=== PATIENT | female | born 1965 | race Caucasian/White ===

== ENCOUNTER 2017-05-14 12:34 | Emergency (ER) | payer MEDICAID ==
[~2017-05-14] VITALS: Ht 170.2 cm; Wt 75.0 kg
[2017-05-14 12:37] VITALS: Ht 170.2 cm; Wt 75.0 kg
[2017-05-14] MEDS ORDERED: ACETAMINOPHEN 325 MG TAB PO ONE (14:30)
[2017-05-14] MEDS ORDERED: DIPHTH/TET/ACEL PERTUSS (ADULT) 0.5 ML VIAL IM* ONE (14:30)
--- NOTE | 2017-05-14 15:16 | RADRPT ---
PROCEDURE: XR nasal bones 3 Views CLINICAL INDICATION: Nose pain and trauma TECHNIQUE: AP and bilateral lateral views of the nasal bones were obtained COMPARISON: None available FINDINGS: Subtle fragmentation in the mid and distal aspect of the nasal bones is best seen on a single latera l image and may reflect a comminuted, minimally displaced fracture. The remaining osseous structures appear intact. No destructive bony lesions are observed. Visualized paranasal sinuses and mastoids are clear. Soft tissues are without gross abnormality. IMPRESSION: Subtle fragmentation of the mid and distal aspects of the nasal bones, best seen on a single lateral image that may reflect a comminuted, minimally displaced fracture. If there is high clinical suspicion for additional traumatic injury, further evaluation with CT shou ld be considered. RPTAT: AA .Shine Patiño MD, Date Time Electronically viewed and signed by .Shine Patiño MD, on 05/14/2017 15:16 .P/
--- NOTE | 2017-05-14 15:17 | RADRPT ---
PROCEDURE: XR Elbow 3 Views. CLINICAL INDICATION: Right elbow pain and trauma. TECHNIQUE: AP, lateral and oblique views of the right elbow performed. COMPARISON: None. FINDINGS: The osseous structures are intact. No destructive bony lesions are observed. Interosseous spaces a ppear normal. Soft tissues surrounding the elbow are unremarkable. IMPRESSION: No visualized traumatic injury. If there is high clinical suspicion for traumatic injury, further evaluation with CT should be consi dered. RPTAT: AA .Shine Patiño MD, Date Time Electronically viewed and signed by .Shine Patiño MD, on 05/14/2017 15:16 .P/
[2017-05-14] MEDS ORDERED: IBUP-1542 PO (15:24)
--- NOTE | 2017-05-14 15:27 | ERD ---
ER Documentation Chief Complaint Date/Time DATE: 05/14/17 TIME: 15:25 Chief Complaint fell on a fence, Left breast pain, nose and right arm pain with headache HPI This 51-year-old female fell down this morning. She landed on her face complains of right elbow pain and abrasion on her left upper chest wall patient has a shortness of breath, neck pain, weakness, loss of consciousness, visual changes or vomiting. ROS All systems reviewed and are negative except as per history of present illness. Medications Home Meds Active Scripts Ibuprofen* (Motrin*) 600 Mg Tab, 600 MG PO Q6, #20 TAB Prov:IGNACIO GUZMAN MD 05/14/17 Allergies Allergies: Coded Allergies: No Known Allergy (Unverified , 05/14/17) PMhx/Soc History of Surgery: Yes (nose and breast surgeries) Anesthesia Reaction: No Hx Neurological Disorder: No Hx Respiratory Disorders: No Hx Cardiac Disorders: Yes (hypertension) Hx Miscellaneous Medical Probl: Yes (diabetes mellitus) Hx Alcohol Use: No Hx Substance Use: No Hx Tobacco Use: No Smoking Status: Never smoker Physical Exam Vitals Vital Signs Date Time Temp Pulse Resp B/P Pulse Ox O2 Delivery O2 Flow Rate FiO2 05/14/17 12:37 98.4 83 20 157/81 97 Physical Exam Const: [], [id number]. Head: Atraumatic Eyes: Normal Conjunctiva. Eyes PERRLA and extraocular movements intact. ENT: Normal External Ears, Nose and Mouth. Mild nasal bridge tenderness without significant swelling or deformities. No septal hematoma. Neck: Full range of motion..~ No meningismus. Nontender. Resp: Clear to auscultation bilaterally Cardio: Regular rate and rhythm, no murmurs Abd: Soft, non tender, non distended. Normal bowel sounds Skin: No petechiae or rashes Back: No midline or flank tenderness Ext: No cyanosis, or edema mild generalized right elbow tenderness without deformities, point tenderness. Right upper extremity is nervous intact without deficits or weakness appreciated. Neur: Awake and alert Psych: Normal Mood and Affect Results 24 hrs Current Medications Medications (Trade) Dose Ordered Sig/Nicolas Route PRN Reason Start Time Stop Time Status Last Admin Dose Admin Acetaminophen (Tylenol Tab) 650 mg ONCE ONCE PO 05/14/17 14:30 05/14/17 14:31 DC 05/14/17 15:12 Diphtheria/ Tetanus/Acell Pertussis (Adacel) 0.5 ml ONCE ONCE IM* 05/14/17 14:30 05/14/17 14:31 DC 05/14/17 15:12 Procedures/MDM X-ray right elbow 3V Interpreted by me: Fat Pads: [Normal] Bones: [No fracture] Joints: [No dislocation] Foreign body: [None] impression have normal right elbow x-ray PA lateral Yap view 3 view nasal bone shows possibly 1 view of comminuted nondisplaced nasal bone fracture.. Impression-possible nondisplaced nasal bone fracture Tetanus booster. Wound was cleansed and dressed. Patient presents with abrasion on her chest wall, right elbow contusion possible nasal fracture without signs or symptoms to suggest skull fracture, intracranial bleeding, neck injury, deficits, additional complications related fall. She will treated ibuprofen and primary care and ENT follow-up. She was also given return precautions regarding her injuries and fall today. The patient was stable with no new complaints during the ER course. Clinically, there is no current evidence to suggest meningitis, sepsis, acute abdomen, pneumonia, acute coronary syndrome, pulmonary embolism, or any other emergent condition appearing to require further evaluation or hospitalization. The patient should certainly return for any new or worsening symptoms per the aftercare instructions. They should otherwise follow-up with her primary care doctor for reevaluation this week. Disclaimer: Inadvertent spelling and grammatical errors are likely due to EHR/dictation software use and do not reflect on the overall quality of patient care. Also, please note that the electronic time recorded on this note does not necessarily reflect the actual time of the patient encounter. Departure Diagnosis: Primary Impression: Nasal bone fracture Encounter type: initial encounter Fracture type: closed Qualified Code: S02.2XXA - Closed fracture of nasal bone, initial encounter Additional Impression: Fall Encounter type: initial encounter Qualified Code: W19.XXXA - Fall, initial encounter Condition: Stable Patient Instructions: Fall, Mechanical, Fracture, Nose (With X-Ray) Referrals: KRISTIAN GRAFF MD, STEPHEN H MD Additional Instructions: POSIBLEMENTE POQUITO FRACTURA DE NARIZ. Va al sellers doctor/ specialista para mas evaluacon en el proximo semana. posiblemente necesita autorizado de sellers doctor primario para specialista. Regresa para fiebre, o mas o nueva simptomas. IGNACIO GUZMAN MD May 14, 2017 15:27
[2017-05-14 16:14] VITALS: BP 127/84; PULSE 79; RESP 20; TEMP 98
== END 2017-05-14 16:15 | disposition home or self-care (01) ==
LOC: FTE 12:34
DX: S02.2XXA Fracture of nasal bones, initial encounter for closed fracture (principal); I10 Essential (primary) hypertension; E11.9 Type 2 diabetes mellitus without complications; W18.39XA Other fall on same level, initial encounter; Y92.9 Unspecified place or not applicable; Z23 Encounter for immunization
CPT/HCPCS: 70160; 73080; 90471; 90715; Z7502; Z7610